=== PATIENT | female | born 1985 | race African-American/Black ===

== ENCOUNTER 2021-12-15 19:52 | Inpatient (IN) | payer MEDICAID ==
[~2021-12-15] VITALS: Ht 157.5 cm; Wt 79.4 kg
[2021-12-15] MEDS ORDERED: LACTATED RINGERS 1,000 ML IV SCH (20:00)
[2021-12-15] MEDS ORDERED: DEXT 5%/LR + PITOCIN 20UNITS/L 1,000 ML IV SCH (20:00)
[2021-12-15] MEDS ORDERED: LIDOCAINE HCL 1% 20ML VIAL (Pyxis) INJ INFIL SCH (20:00)
[2021-12-15] MEDS ORDERED: MISOPROSTOL 100MCG TABLET VG SCH (20:00)
[2021-12-15] MEDS ORDERED: METHYLERGONOVINE MALEATE 0.2 MG/ML IM PRN (20:00)
[2021-12-15] MEDS ORDERED: BUTORPHANOL TARTRATE 2 MG/ML VIAL IV PRN (20:00)
[2021-12-15] MEDS ORDERED: CARBOPROST TROMETHAMINE 250 MCG/ML AMPUL IM PRN (20:00)
[2021-12-15] MEDS ORDERED: PENICILLIN G POTASSIUM 5 MMU in DEXT 5% WATER 100 ML IV NR (20:30)
[2021-12-15 21:05] LABS: INR 0.9; PARTIAL THROMBOPLASTIN TIME 29.3 sec (23.4-31.0); PROTHROMBIN TIME 9.8 sec (9.6-11.0)
[2021-12-15 21:06] LABS: CHLORIDE 106 mEq/L (98-107)
[2021-12-15 21:08] LABS: BASOPHILS % 0.7 % (0.0-2.0); EOSINOPHILS % 0.1 % (0.0-5.0); HEMATOCRIT. 28.7 % (36.0-48.0); HEMOGLOBIN. 9.2 g/dL (12.0-16.0); LYMPHOCYTES % 16.7 % (20.0-50.0); MEAN CORPUSCULAR HEMOGLOBIN 23.5 pg (28.0-32.0); MEAN CORPUSCULAR VOLUME 73.4 fL (81.0-99.0); MEAN PLATELET VOLUME 8.1 fl (7.4-10.4); MONOCYTES % 9.7 % (2.0-8.0); NEUTROPHILS % 72.8 % (40.0-76.0); PLATELET 344 x1000/uL (130-400); RED BLOOD CELL COUNT 3.91 mill/uL (4.2-5.4); RED CELL DISTRIBUTION WIDTH 17.7 % (11.6-14.6)
[2021-12-15] MEDS ORDERED: FENTANYL CITRATE/PF 50MCG/ML 2ML VIAL ONE (21:21)
[2021-12-15] MEDS ORDERED: PHENYLEPHRINE HCL 10 MG/ML 1ML (IV VIAL) IV ONE (21:22)
[2021-12-15] MEDS ORDERED: MORPHINE SULFATE/PF 1MG/ML 10ML AMP ONE (21:22)
[2021-12-15] MEDS ORDERED: CEFAZOLIN SODIUM 1000MG/VIAL ONE ×2 (21:22→23:15)
[2021-12-15] MEDS ORDERED: LABETALOL 5MG/ML SYR 20 MG/4 ML SYRINGE IV PRN (21:30)
[2021-12-15] MEDS ORDERED: DIPHENHYDRAMINE 50MG/ML VIAL IV PRN (21:30)
[2021-12-15] MEDS ORDERED: BUTORPHANOL TARTRATE 2 MG/ML VIAL IM PRN (21:30)
[2021-12-15] MEDS ORDERED: HYDROMORPHONE HCL/PF 2MG/ML CPJ IV PRN (21:30)
[2021-12-15] MEDS ORDERED: ONDANSETRON HCL 4MG/2ML INJ IV PRN (21:30)
[2021-12-15] MEDS ORDERED: KETOROLAC 30MG/ML VIAL IV PRN (21:30)
[2021-12-15] MEDS ORDERED: MEPERIDINE HCL/PF 25MG/ML CPJ IV PRN (21:30)
[2021-12-15 22:19] LABS: CLARITY URINE TURBID (CLEAR); COLOR URINE YELLOW (YELLOW); KETONES URINE NEGATIVE (NEGATIVE); LEUKOCYTE ESTERASE URINE 3+ (NEGATIVE); NITRITE URINE NEGATIVE (NEGATIVE); OCCULT BLOOD URINE 1+ (NEGATIVE); PH URINE 6.5 (4.5-8.0); PROTEIN URINE TRACE (NEGATIVE); SPECIFIC GRAVITY URINE 1.011 (1.005-1.030)
[2021-12-15 22:30] LABS: METHADONE URINE SCREEN NEGATIVE (NEGATIVE); OPIATES URINE SCREEN NEGATIVE (NEGATIVE); PHENCYCLIDINE URINE SCREEN NEGATIVE (NEGATIVE)
[2021-12-15 22:31] LABS: *AMPHETAMINES SCREEN URINE NEGATIVE (NEGATIVE); *BARBITURATES SCREEN URINE NEGATIVE (NEGATIVE); *BENZODIAZEPINES SCREEN URINE NEGATIVE (NEGATIVE)
[2021-12-15 22:45] LABS: *COCAINE SCREEN URINE PRESUMTIVE POSITIVE (NEGATIVE); CANNABINOID URINE SCREEN PRESUMTIVE POSITIVE (NEGATIVE)
[2021-12-15 22:46] LABS: HEPATITIS B SURFACE ANTIGEN NEGATIVE
[2021-12-15] MEDS ORDERED: SODIUM CHLORIDE 0.9% 10ML VIAL ONE (23:15)
[2021-12-15] MEDS ORDERED: OXYTOCIN 10 UNITS/ML 1ML ONE (23:15)
[2021-12-15] MEDS ORDERED: ONDANSETRON HCL 4MG/2ML INJ ONE (23:15)
[2021-12-16] MEDS ORDERED: HYDROCODONE/ACETAMINOPHEN 5/325MG TABLET PO PRN
[2021-12-16] MEDS ORDERED: DEXT 5%/LR + PITOCIN 20UNITS/L 1,000 ML IV SCH
[2021-12-16] MEDS ORDERED: ONDANSETRON HCL 4MG/2ML INJ IV PRN
[2021-12-16] MEDS ORDERED: DIPHENHYDRAMINE 25MG CAPSULE PO PRN
[2021-12-16] MEDS ORDERED: RHO(D) IMMUNE GLOBULIN 300 MCG/SYR IM PRN
[2021-12-16] MEDS ORDERED: IBUPROFEN 400MG TABLET PO PRN
[2021-12-16] MEDS ORDERED: BISACODYL 10MG SUPP PR PRN
[2021-12-16] MEDS ORDERED: PENICILLIN G POTASSIUM 2.5 MMU in DEXTROSE 5% WATER 50 ML IV SCH (01:00)
[2021-12-16 03:03] VITALS: BP 116/73
[2021-12-16 08:00] VITALS: BP 135/89
[2021-12-16] MEDS: PRENATAL VIT/FE FUMARATE/FA TABLET PO SCH (09:38)
[2021-12-16 12:00] VITALS: BP 143/88
[2021-12-16 16:01] VITALS: BP 131/79
[2021-12-16 17:00] LABS: BASOPHILS % 0.2 % (0.0-2.0); EOSINOPHILS % 0.1 % (0.0-5.0); HEMATOCRIT. 26.1 % (36.0-48.0); HEMOGLOBIN. 8.4 g/dL (12.0-16.0); LYMPHOCYTES % 11.6 % (20.0-50.0); MEAN CORPUSCULAR HEMOGLOBIN 23.8 pg (28.0-32.0); MEAN CORPUSCULAR VOLUME 73.9 fL (81.0-99.0); MEAN PLATELET VOLUME 8.1 fl (7.4-10.4); MONOCYTES % 7.2 % (2.0-8.0); NEUTROPHILS % 80.9 % (40.0-76.0); PLATELET 355 x1000/uL (130-400); RED BLOOD CELL COUNT 3.54 mill/uL (4.2-5.4); RED CELL DISTRIBUTION WIDTH 17.6 % (11.6-14.6)
[2021-12-16 20:00] VITALS: BP 134/72
[2021-12-16] MEDS: DOCUSATE SODIUM 100MG CAPSULE PO SCH (21:46)
[2021-12-16] MEDS: HYDROCODONE/ACETAMINOPHEN 5/325MG TABLET PO PRN (21:47)
[2021-12-17 04:00] VITALS: BP 136/78
[2021-12-17 08:00] VITALS: BP 123/83
[2021-12-17] MEDS: PRENATAL VIT/FE FUMARATE/FA TABLET PO SCH (09:52)
[2021-12-17] MEDS: HYDROCODONE/ACETAMINOPHEN 5/325MG TABLET PO PRN (09:54)
[2021-12-17 12:00] VITALS: BP 129/74
[2021-12-17 16:00] VITALS: BP 123/73
[2021-12-17 19:30] VITALS: BP 137/85
[2021-12-17] MEDS: DOCUSATE SODIUM 100MG CAPSULE PO SCH (21:12)
[2021-12-18 04:00] VITALS: BP 127/78
[2021-12-18] MEDS ORDERED: FERR325T6 MT (07:19)
[2021-12-18] MEDS ORDERED: IBUP-2029 MT (07:19)
[2021-12-18] MEDS ORDERED: MULT-1116 MT (07:19)
[2021-12-18 08:15] VITALS: BP 115/70
[2021-12-18] MEDS: PRENATAL VIT/FE FUMARATE/FA TABLET PO SCH (08:15)
[2022-01-01 07:11] LABS: CANNABINOID CONFIRMATION URINE Positive (.); COCAINE CONFIRMATION URINE Positive (.)
== END 2021-12-18 10:20 | disposition home or self-care (01) | DRG 540 ==
LOC: OBSVTOIN 19:52 → 8 EST LDRP 19:52 → 8EST 12-16 01:48
PROVIDERS: ADMIT Obstetrics & Gynecology; ATTEND Obstetrics & Gynecology
PROC: 10D00Z1 Extraction of Products of Conception, Low, Open Approach (ICD-10-PCS; principal; 2021-12-15)
DX: O34.211 Maternal care for low transverse scar from previous cesarean delivery (principal); O71.1 Rupture of uterus during labor; O99.324 Drug use complicating childbirth; F14.90 Cocaine use, unspecified, uncomplicated; Z3A.37 37 weeks gestation of pregnancy; Z37.0 Single live birth; Z20.822 Contact with and (suspected) exposure to COVID-19; O42.92 Full-term premature rupture of membranes, unspecified as to length of time between rupture and onset of labor
CPT/HCPCS: 36415; 76805; 76818; 80053; 80305; 80349; 80353; 81003; 84550; 85025; 85384; 86592; 86703; 86762; 86850; 86900; 86920; 87077; 87186; 87340; 87426; 88307; 93970; 99281; C1893; G0378; J0690; J1200; J1885; J2274; J2370; J2405; J2540; J2590; J3010; J7060; A4315